=== PATIENT | female | born 1955 | race Caucasian/White ===

== ENCOUNTER 2018-10-15 05:55 | Day surgery (SDC) | payer OTHER, MEDICAID ==
[2018-10-15] MEDS ORDERED: LIDOCAINE 2% (SDV) 5 ML INJ (07:26)
[2018-10-15] MEDS ORDERED: PROPOFOL 60 ML (07:26)
[2018-10-15] MEDS ORDERED: ACETAMINOPHEN 500 MG TAB PO (08:00)
[2018-10-15] MEDS ORDERED: ALBUTEROL 0.083% (NEB) 2.5 MG/3 ML AMP HHN (08:00)
[2018-10-15] MEDS ORDERED: FENTAnyl 50 MCG/ML VIAL IV (08:00)
[2018-10-15] MEDS ORDERED: ONDANSETRON 4 MG INJ IV (08:00)
== END 2018-10-15 11:04 | disposition home or self-care (01) ==
LOC: GIL 05:55
DX: Z12.11 Encounter for screening for malignant neoplasm of colon (principal); K44.9 Diaphragmatic hernia without obstruction or gangrene; D12.6 Benign neoplasm of colon, unspecified; K64.9 Unspecified hemorrhoids
CPT/HCPCS: 43239; 88305; 88312